=== PATIENT | male | born 1985 | race African-American/Black ===

== ENCOUNTER 2022-01-24 03:32 | Emergency (ER) | payer SELFPAY ==
[~2022-01-24] VITALS: Ht 180.3 cm; Wt 102.1 kg
[2022-01-24] MEDS ORDERED: LIDOCAINE HCL 1% 20ML VIAL (Pyxis) INJ INFIL ONE (05:45)
[2022-01-24] MEDS ORDERED: CEFTRIAXONE SODIUM 500 MG/VIAL IM ONE (05:45)
[2022-01-24] MEDS ORDERED: DOXY-326 MT (06:40)
[2022-01-24 06:41] LABS: CLARITY URINE CLEAR (CLEAR); COLOR URINE YELLOW (YELLOW); KETONES URINE NEGATIVE (NEGATIVE); LEUKOCYTE ESTERASE URINE NEGATIVE (NEGATIVE); NITRITE URINE NEGATIVE (NEGATIVE); OCCULT BLOOD URINE NEGATIVE (NEGATIVE); PH URINE 5.5 (4.5-8.0); PROTEIN URINE TRACE (NEGATIVE); SPECIFIC GRAVITY URINE 1.026 (1.005-1.030); UROBILINOGEN URINE 0.2 E.U./dL (0.2-1.0)
[2022-01-24 06:55] VITALS: BP 124/78
[2022-01-25 08:10] LABS: HIV SCREEN 4G Non Reactive (Non Reactive)
[2022-01-26 04:09] LABS: NEISSERIA GONORRHOEAE NAA Negative (Negative)
== END 2022-01-24 06:56 | disposition home or self-care (01) ==
LOC: ER 03:32
DX: Z11.3 Encounter for screening for infections with a predominantly sexual mode of transmission (principal); Z20.2 Contact with and (suspected) exposure to infections with a predominantly sexual mode of transmission
CPT/HCPCS: 81003; 86592; 87389; 87491; 87591; 96372; 99283; J0696